=== PATIENT | female | born 1990 | race African-American/Black ===

== ENCOUNTER 2021-03-15 13:39 | Inpatient (IN) | payer BC ==
[~2021-03-15] VITALS: Ht 170.2 cm; Wt 148.0 kg
[2021-03-15 14:34] LABS: BASOPHILS # (AUTO) 0.1 X10'3 (0-0.2); BASOPHILS % (AUTO) 0.9 % (0-1); EOSINOPHILS # (AUTO) 0.4 X10'3 (0-0.9); EOSINOPHILS % (AUTO) 7.1 % (0-6); HEMATOCRIT 38.3 % (35.0-45.0); HEMOGLOBIN 12.4 g/dl (12.0-16.0); LYMPHOCYTES # (AUTO) 2.5 X10'3 (1.1-4.8); LYMPHOCYTES % (AUTO) 40.6 % (21-51); MEAN CORPUSCULAR HEMOGLOBIN 27.3 PG (27.0-31.0); MEAN CORPUSCULAR HGB CONC 32.4 g/dL (33.0-36.5); MEAN PLATELET VOLUME 8.4 FL (7.4-10.4); MONOCYTES # (AUTO) 0.6 X10'3 (0-0.9); MONOCYTES % (AUTO) 10.3 % (2-12); NEUTROPHILS # (AUTO) 2.5 X10'3 (1.8-7.7); NEUTROPHILS % (AUTO) 41.1 % (42-75); PLATELET COUNT 282 X10'3 (140-440); RED BLOOD COUNT 4.55 X10'6 (4.20-5.60); RED CELL DISTRIBUTION WIDTH 16.7 % (11.5-14.5); WHITE BLOOD COUNT 6.1 X10'3 (4.5-11.0)
[2021-03-15 14:42] LABS: ALANINE AMINOTRANSFERASE 23 U/L (12-78); ALBUMIN 3.2 G/DL (3.4-5.0); ALBUMIN/GLOBULIN RATIO 0.7 (1.1-1.5); ALKALINE PHOSPHATASE 59 IU/L (46-116); ANION GAP 10 (8-16); ASPARTATE AMINO TRANSFERASE 14 U/L (10-37); BILIRUBIN,TOTAL 0.3 MG/DL (0.1-1.0); BLOOD UREA NITROGEN 9 MG/DL (7-18); CALCIUM 8.4 MG/DL (8.5-10.1); CHLORIDE 107 MMOL/L (99-107); CREATININE 0.75 MG/DL (0.40-0.90); GLUCOSE 89 MG/DL (70-104); SODIUM 139 MMOL/L (135-145); TOTAL CARBON DIOXIDE 22.3 MMOL/L (24-32); TOTAL PROTEIN 7.8 G/DL (6.4-8.2); eGFR 90 ML/MIN
[2021-03-15 14:51] LABS: ETHANOL < 0.010 GM/DL (0.0-0.010)
--- NOTE | 2021-03-15 15:53 | NUR ---
Received patient to bed #20 at 1450. Pt was BIB her mother with worsening symptoms of depression and suicidal thoughts without a plan. Pt changed into green unit scrubs, was compliant with admit process. Pt presents depressed and is tearful during assessment. Pt takes Lexapro 20mg daily. Pt is followed by Kevon Tong. Pt's depression is effecting her work states at times "I just can't handle it anymore." Pt states "I cry all the time." Pt denies auditory hallucinations currently, but states she sometimes hears "someone talking to me." Pt has loss of appetite and reports 40-60 lb weight loss in the last month. Pt reports past SA and self harm behaviors. Pt has history of cutting.
--- NOTE | 2021-03-15 16:55 | NUR ---
Pt reports anxiety with N/V, was in bathroom and poem writer heard pt vomiting. Headache 09/30. Received order for Zofran 4mg, Tylenol 650mg, Ativan 1mg. Pt is calm, but tearful. Presents with a constricted affect.
[2021-03-15 17:00] LABS: COLOR,URINE YELLOW (Yellow); UA COLLECTION TYPE CLN CATCH MIDSTREAM
[2021-03-15 17:01] LABS: CLARITY,URINE CLOUDY (Clear); GLUCOSE, URINE NEGATIVE (Neg); KETONES,URINE 15 mg/dl (Neg); LEUKOCYTE ESTERASE ,URINE NEGATIVE (Neg); NITRITES, URINE NEGATIVE (Neg); OCCULT BLOOD,URINE TRACE-INTACT (Neg); PROTEIN,URINE NEGATIVE (Neg); URINE HCG NEGATIVE (NEG); UROBILINOGEN,URINE 0.2 E.U/dL (0.2-1.0)
[2021-03-15 17:05] LABS: BACTERIA,URINE FEW /HPF (Neg); RBC,URINE 0-2 /HPF (0-2); SQUAMOUS EPITHELIAL CELL,UR FEW /LPF (FEW); WBC,URINE 0-4 /HPF (0-4)
[2021-03-15 17:06] LABS: URINE AMPHETAMINE SCREEN NEGATIVE (Neg); URINE BARBITUATE SCREEN NEGATIVE (Neg); URINE BENZODIAZEPINES SCREEN NEGATIVE (Neg); URINE CANNABINOID SCREEN POSITIVE (Neg); URINE COCAINE SCREEN NEGATIVE (Neg); URINE METHADONE SCREEN NEGATIVE (Neg); URINE OPIATE SCREEN NEGATIVE (Neg); URINE PHENCYCLIDINE SCREEN NEGATIVE (Neg)
[2021-03-15] MEDS ORDERED: ESCI20TA PO (17:15)
--- NOTE | 2021-03-15 17:40 | NUR ---
[facility] at bedside. Pt tearful answering questions.
[2021-03-15] MEDS ORDERED: acetaminophen 325mg tablet PO ONE (17:45)
[2021-03-15] MEDS ORDERED: LORazepam 1 MG tablet PO ONE (17:45)
[2021-03-15] MEDS ORDERED: ondansetron 4mg rapidly disintigrating tab PO ONE (17:45)
--- NOTE | 2021-03-15 17:48 | NUR ---
FAXED PACKET TO [facility].
--- NOTE | 2021-03-15 19:35 | NUR ---
Pt finishing up with dinner, denies SI/AH/VH, pt talking with mom and decided to stay on a 1799 for psychiatric hospitalization. PT calm and cooperative, pt currently resting in bed.
--- NOTE | 2021-03-15 20:44 | NUR ---
Pt has been accepted to [facility] unit.
[2021-03-15] MEDS ORDERED: mag hydrox/Alum hydrox/simeth 30ml oral suspension PO PRN (21:10)
[2021-03-15] MEDS ORDERED: acetaminophen 325mg tablet PO PRN ×2 (21:10)
[2021-03-15] MEDS ORDERED: loperamide 2mg capsule PO PRN (21:10)
[2021-03-15] MEDS ORDERED: magnesium hydroxide 30ml (MOM) UD suspension PO PRN (21:10)
[2021-03-15] MEDS ORDERED: traZODone 50mg tablet PO PRN (22:15)
[2021-03-15 22:46] VITALS: BP 140/85
[2021-03-15] MEDS ORDERED: nicotine 21mg patch - 24 hr TD ONE (23:10)
--- NOTE | 2021-03-15 23:40 | NUR ---
Admit assessment Legal hold: 5150 Client on involuntary status for DTS Report received from pt report Why are they here: Patient is a 30 y/o female who presented to ED with complaint of suicidal ideation with depression and is requested mental health evaluation. Patient reported history of depression, and states that she has had thoughts of harming herself by cutting or overdosing with her prescribed medications, Lexapro and Prozac.Pt has history of suicide attempts, and cutting. Pt has recently from boyfriend and has job stressors. Pt currently lives with her mom and is an everyday smoker. Diagnosis/presenting symptoms: DTS S/I, H/I: Denies A/VH: Denies Sleep: see sleep assessment ADL's: independent Group attendance: No group in evenings Were meds taken: Yes, (100mg Trazadone) Any med S/E: no Mental Status Exam Appearance: In green scrubs, shoulder length brown hair pulled back at nape of neck Eye contact: Good Behavior: Calm, cooperative Speech: Normal rate, rhythm Mood: Depressed; quiet Affect: Blunted Thought process: Linear Thought Content: depressed Cognition: AOX4 Insight: Poor Judgment: Poor Interventions PRN's used: None Therapeutic interventions: Maintained a safe and supportive environment, provided clear and simple instructions, ensured contract for safety, provided active listening and positive encouragement, monitored anxiety and need for intervention, medication administration/ education, and maintained Q 15min safety checks. Restraints/seclusion/emergency medication: N/A Justification of Continued Inpatient Treatment: Pt. requires interruption of current crisis, medication adjustments, and a safe and therapeutic environment.
[2021-03-16] MEDS ORDERED: traZODone 50mg tablet PO ONE (00:45)
--- NOTE | 2021-03-16 01:28 | NUR ---
Pt took another dose of 100mg Trazodone due to difficulty sleeping.
[2021-03-16] MEDS: ESCITALOPRAM OXALATE 5 MG TABLET PO SCH (07:30)
[2021-03-16] MEDS: nicotine 21mg patch - 24 hr TD SCH (07:31)
[2021-03-16 08:00] VITALS: BP 115/58
[2021-03-16 08:38] LABS: CHOL/HDL RATIO 4.2 (0.00-4.99); CHOLESTEROL 202 MG/DL (0-200); HDL CHOLESTEROL 48 MG/DL (35-60); LDL CHOLESTEROL 127 MG/DL (50-100); TRIGLYCERIDES 74 MG/DL (20-135)
[2021-03-16] MEDS ORDERED: magnesium hydroxide 30ml (MOM) UD suspension PO ONE (13:35)
--- NOTE | 2021-03-16 15:21 | NUR ---
Marisol is a 30 y/o single femele who was placed on 5150 for danger to self. She presented to the ED with her mother marci to passive suicidal thoughts, intermittent auditory hallucinations, job stressors and relationship stressors. She reported a history of depression and taking medications for it since 2016. 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 She reported an increase in depressive symptoms over the last several months which include low energy, anhedonia, isolating, cries often, feels depressed with suicidal ideation, auditory hallucinations at times which tell her to harm herself, poor appetite, and poor sleep. This is the first time she has been in a psychiatric hospital. She would like to follow up with a psychiatrist and therapist, however, there are not many options with her current insurance, Covered [place]. Plan: [employer] will assist Marisol with discharge plan and referrals. THIAGO Hammer Addendum: 03/16/21 at 1522 by Dary José SS Amended: Links added.
--- NOTE | 2021-03-16 16:30 | NUR ---
Nursing Note: Janae Legal hold: 5150 Client on involuntary status for DTS Why are they here: Report received from pt report Why are they here: Pt. presented to ED with complaint of suicidal ideation with depression and is requested mental health evaluation. Patient reported history of depression, and states that she has had thoughts of harming herself by cutting or overdosing with her prescribed medications, Lexapro and Prozac. Pt has history of suicide attempts, and cutting. Pt has recently from boyfriend and has job stressors. Assessment What has happened this shift: Pt. received sleeping in her room. She awoke to receive her medication and was receptive to 1:1 assessment. Pt. currently denies SI,HI and A/VH but reports currently feeling depression Pt. reports her future plans are to take some time off of work. Pt. presents as calm, and cooperative. She reported three days with no BM but refused needing a laxative. Pt. ate her meals in the dining room but socializing minimally, she spent most the shift in her room and napped intermittently. Pt did attend group this shift with snack this shift and was observed interacting very little with cohorts. Pt. took two nap this shift. Pt. reproached and she did accept M.O.M PRN for constipation. S/I, H/I: Denies A/VH: Denies Sleep: 6.75 hrs per NOC shift, X2 nap today ADL's: independent Group attendance: Yes Were meds taken: Yes Any med S/E: None observed or reported Mental Status Exam Appearance: Young female of large stature wearing green unit scrubs Eye contact: Good Behavior: Calm, cooperative Speech: Normal rate, rhythm Mood: Depressed Affect: Blunted Thought process: Linear Thought Content: Im just down you know Cognition: AOX4 Insight: Fair Judgment: Fair Interventions PRN's used: None Therapeutic interventions: Maintained a safe and supportive environment, provided clear and simple instructions, ensured contract for safety, provided active listening and positive encouragement, monitored anxiety and need for intervention, medication administration/ education, and maintained Q 15min safety checks. Restraints/seclusion/emergency medication: N/A Justification of Continued Inpatient Treatment: Pt. requires interruption of current crisis, medication adjustments, and a safe and therapeutic environment.
[2021-03-16 20:00] VITALS: BP 145/78
[2021-03-16] MEDS: traZODone 50mg tablet PO PRN (20:43)
[2021-03-16] MEDS: risperiDONE 0.5mg tablet PO SCH (21:41)
--- NOTE | 2021-03-17 00:26 | NUR ---
Nursing Note: Janae Legal hold: 5150 Client on involuntary status for DTS Why are they here: Report received from pt report Why are they here: Pt. presented to ED with complaint of suicidal ideation with depression and is requested mental health evaluation. Patient reported history of depression, and states that she has had thoughts of harming herself by cutting or overdosing with her prescribed medications, Lexapro and Prozac. Pt has history of suicide attempts, and cutting. Pt has recently from boyfriend and has job stressors. Assessment What has happened this shift: Pt in community room at shift change talking on phone eating dinner. Pt later seen talking to MAYE Rees. Pt approached me after snack and asked for a shower and some belongings her mother had dropped off with security. Pt denies any A/V H or want harm self while here. 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 Pt took shower after snack and then watched TV in REC room with other pts. Pt went to bed shortly after and asked for PRN Trazodone. S/I, H/I: Denies A/VH: Denies Sleep: See sleep hours ADL's: independent Group attendance: No group in evenings Were meds taken: Yes Any med S/E: None observed or reported Mental Status Exam Appearance: Young female of large stature wearing green unit scrubs Eye contact: Good Behavior: Calm, cooperative Speech: Normal rate, rhythm Mood: Depressed Affect: Blunted Thought process: Linear Thought Content: talking to family on phone. Cognition: AOX4 Insight: Fair Judgment: Fair Interventions PRN's used: 100mg Trazodone Therapeutic interventions: Maintained a safe and supportive environment, provided clear and simple instructions, ensured contract for safety, provided active listening and positive encouragement, monitored anxiety and need for intervention, medication administration/ education, and maintained Q 15min safety checks. Restraints/seclusion/emergency medication: N/A Justification of Continued Inpatient Treatment: Pt. requires interruption of current crisis, medication adjustments, and a safe and therapeutic environment.
[2021-03-17 08:00] VITALS: BP 125/85
[2021-03-17] MEDS: nicotine 21mg patch - 24 hr TD SCH (08:00)
[2021-03-17] MEDS: ESCITALOPRAM OXALATE 5 MG TABLET PO SCH (09:14)
--- NOTE | 2021-03-17 15:58 | NUR ---
Nursing Note: Janae Legal hold: 5150 Client on involuntary status for DTS Why are they here: Report received from pt report Why are they here: Pt. presented to ED with complaint of suicidal ideation with depression and is requested mental health evaluation. Patient reported history of depression, and states that she has had thoughts of harming herself by cutting or overdosing with her prescribed medications, Lexapro and Prozac. Pt has history of suicide attempts, and cutting. Pt has recently from boyfriend and has job stressors. Assessment What has happened this shift: RN received pt. asleep in bed at start of shift. Pt. ate breakfast and took all medications. Pt. c/o of headache rated 6/10 and received Tylenol 650mg po with good effect. 1:1 done in Rec Room. Pt. reports previous suicide attempt a year ago by OD on medications. Pt. reports she was not hospitalized for that. Pt. reports she does not have a mental health provider, but receives anti-depressants through a prescriber at her work. Pt. reports she feels like psych medications are working well. Pt. observed watching TV in the Rec Room and participating in group. Pt. is socially with peers and staff. Pt. went out to patio with group in the afternoon. S/I, H/I: Denies A/VH: Denies Sleep: Pt. slept 6.75 hrs on NOC shift and did not appear to nap on day shift. ADL's: Independent. Group attendance: Yes Were meds taken: Yes Any med S/E: Denies. None observed. Mental Status Exam Appearance: Clean and neat wearing casual attire. Eye contact: Good Behavior: Calm, cooperative, watching TV and socializing with peers and staff. Speech: Normal rate, rhythm Mood: Depressed Affect: Blunted Thought process: Linear Thought Content: Circumstantial Cognition: AOX4 Insight: Fair Judgment: Fair Interventions PRN's used: Tylenol 650mg po x1 Therapeutic interventions: Maintained a safe and supportive environment, provided clear and simple instructions, ensured contract for safety, provided active listening and positive encouragement, monitored anxiety and need for intervention, medication administration/ education, and maintained Q 15min safety checks. Restraints/seclusion/emergency medication: N/A Justification of Continued Inpatient Treatment: Pt. requires interruption of current crisis, medication adjustments, and a safe and therapeutic environment.
[2021-03-17 19:00] VITALS: BP 147/83
[2021-03-17] MEDS: risperiDONE 0.5mg tablet PO SCH (20:14)
[2021-03-17] MEDS: traZODone 50mg tablet PO PRN (20:17)
--- NOTE | 2021-03-18 02:44 | NUR ---
Nursing Note: Janae Legal hold: 5150 Client on involuntary status for DTS Report received from Loni ROOT Why are they here: Pt. presented to ED with complaint of suicidal ideation with depression and is requested mental health evaluation. Patient reported history of depression, and states that she has had thoughts of harming herself by cutting or overdosing with her prescribed medications, Lexapro and Prozac. Pt has history of suicide attempts, and cutting. Pt has recently from boyfriend and has job stressors. Assessment What has happened this shift: RN received pt. talking on the phone. 1:1 assessment done, denies MH symptoms. Pt states she feels the medications are helping her. Pt observed watching TV in the rec room. Pt took all HS medications along with PRN trazadone. S/I, H/I: Denies A/VH: Denies Sleep: ADL's: Independent. Group attendance: Were meds taken: Yes Any med S/E: Denies. None observed. Mental Status Exam Appearance: Clean and neat wearing casual attire. Eye contact: Good Behavior: Calm, cooperative, watching TV and socializing with peers and staff. Speech: Normal rate, rhythm Mood: Depressed Affect: Blunted Thought process: Linear Thought Content: Circumstantial Cognition: AOX4 Insight: Fair Judgment: Fair Interventions PRN's used: Therapeutic interventions: Maintained a safe and supportive environment, provided clear and simple instructions, ensured contract for safety, provided active listening and positive encouragement, monitored anxiety and need for intervention, medication administration/ education, and maintained Q 15min safety checks. Restraints/seclusion/emergency medication: N/A Justification of Continued Inpatient Treatment: Pt. requires interruption of current crisis, medication adjustments, and a safe and therapeutic environment.
[2021-03-18 07:07] VITALS: BP 133/89
[2021-03-18] MEDS: ESCITALOPRAM OXALATE 5 MG TABLET PO SCH (07:27)
[2021-03-18] MEDS: nicotine 21mg patch - 24 hr TD SCH (07:29)
[2021-03-18] MEDS ORDERED: NICO-687 TD (14:06)
[2021-03-18] MEDS ORDERED: RISP1TAB69 PO (14:06)
[2021-03-18] MEDS ORDERED: TRAZ-256 PO (14:06)
--- NOTE | 2021-03-18 15:00 | NUR ---
DISCHARGE NOTE: Pt. discharged to home driven by boyfriend in car. RN went over all discharge paperwork with pt. pt. verbalized understanding of discharge f/u plan, medications, and signed all discharge paperwork. Pt. given crisis numbers and verbalized understanding to call 911 in emergency. Pt. denies SI/HI, A/V hallucinations. Pt. is A&Ox4 and in no apparent distress. Pt. given scripts and verbalized understanding of how to fill them. Pt. discharged with all belongings and valuables. Pt. discharged with nicotine replacement and script.
== END 2021-03-18 15:00 | disposition home or self-care (01) | DRG 885 ==
LOC: ER 13:40 → ADULT MH 19:45
PROVIDERS: ADMIT Psychiatry & Neurology Psychiatry; ATTEND Psychiatry & Neurology Psychiatry
DX: F33.3 Major depressive disorder, recurrent, severe with psychotic symptoms (principal); F17.210 Nicotine dependence, cigarettes, uncomplicated; K59.00 Constipation, unspecified; Z20.822 Contact with and (suspected) exposure to COVID-19; F12.90 Cannabis use, unspecified, uncomplicated; F41.9 Anxiety disorder, unspecified; Z91.51 Personal history of suicidal behavior; Z88.0 Allergy status to penicillin; Z79.899 Other long term (current) drug therapy; Z71.6 Tobacco abuse counseling
CPT/HCPCS: 36415; 80053; 80061; 80305; 80320; 81001; 81025; 83036; 84443; 85025; 87081; 87635; 99285; C9803

== ENCOUNTER 2023-06-04 15:34 | Emergency (ER) | payer BC, MEDICAID ==
[~2023-06-04] VITALS: Ht 170.2 cm; Wt 143.2 kg
[~2023-06-04 15:34] MED LIST: ESCI20TA PO; NICO-687 TD; RISP1TAB69 PO; TRAZ-256 PO
[2023-06-04 15:37] VITALS: BP 173/104; PULSE 93; RESP 18; O2SAT 98
[2023-06-04] MEDS ORDERED: ibuprofen tablet 400 MG TABLET PO ONE (16:10)
[2023-06-04] MEDS: ibuprofen 200mg tablet PO ONE (16:19)
[2023-06-04 18:35] VITALS: TEMP 97.8
== END 2023-06-04 18:36 | disposition home or self-care (01) ==
LOC: ER 15:34
DX: S02.2XXA Fracture of nasal bones, initial encounter for closed fracture (principal); Z88.0 Allergy status to penicillin; Z79.899 Other long term (current) drug therapy; Y08.89XA Assault by other specified means, initial encounter; Y93.89 Activity, other specified; Y92.89 Other specified places as the place of occurrence of the external cause; Y99.8 Other external cause status
CPT/HCPCS: 70486; 99284